=== PATIENT | female | born 1960 | race African-American/Black ===

== ENCOUNTER 2017-12-18 19:41 | Emergency (ER) | payer OTHER ==
[~2017-12-18] VITALS: Ht 167.6 cm; Wt 100.0 kg
[2017-12-18] MEDS ORDERED: KETOROLAC 30 MG/1 ML ONE (20:24)
[2017-12-18] MEDS ORDERED: ONDANSETRON ODT 4 MG ONE (20:24)
[2017-12-18] MEDS ORDERED: DIAZEPAM 5 MG TABLET ONE (20:25)
[2017-12-18] MEDS ORDERED: MORPHINE SULFATE 4 MG/ML, 1ML ONE (20:25)
[2017-12-18] MEDS ORDERED: KETOROLAC 30 MG/1 ML IV ONE (20:30)
[2017-12-18] MEDS ORDERED: DIAZEPAM 5 MG TABLET PO ONE (20:30)
[2017-12-18] MEDS ORDERED: ONDANSETRON 2MG/ML, 2ML IVPush ONE (20:30)
[2017-12-18] MEDS ORDERED: MORPHINE SULFATE 4 MG/ML, 1ML IVPush PRN (20:30)
[2017-12-18] MEDS ORDERED: DIPHENHYDRAMINE 50 MG/ML, 1ML ONE (20:45)
[2017-12-18] MEDS ORDERED: DIPHENHYDRAMINE 50 MG/ML, 1ML IVPush ONE (21:00)
[2017-12-18] MEDS ORDERED: HYDROmorphone 1 MG/ML, 1ML IVPush ONE (22:00)
[2017-12-18] MEDS ORDERED: HYDROmorphone 2 MG/ML, 1ML ONE (22:31)
[2017-12-18 23:35] VITALS: BP 167/80
== END 2017-12-18 23:52 | disposition home or self-care (01) ==
LOC: ED 23:39
DX: S39.012A Strain of muscle, fascia and tendon of lower back, initial encounter (principal); F17.210 Nicotine dependence, cigarettes, uncomplicated; X58.XXXA Exposure to other specified factors, initial encounter; Y93.89 Activity, other specified; Y92.89 Other specified places as the place of occurrence of the external cause; Y99.8 Other external cause status
CPT/HCPCS: 96374; 96375; 99284; J1170; J1885; J2405

== ENCOUNTER 2018-02-12 01:37 | Emergency (ER) | payer OTHER ==
[~2018-02-12] VITALS: Ht 170.2 cm; Wt 99.8 kg
[2018-02-12] MEDS ORDERED: TACR1CAP4 PO ×2 (01:44)
[2018-02-12] MEDS ORDERED: SODIUM CHLORIDE 0.9% 1,000ML IVBOLUS ONE (02:00)
[2018-02-12] MEDS ORDERED: SODIUM CHLORIDE FLUSH 10ML SYR IVF ONE (02:00)
[2018-02-12] MEDS ORDERED: ONDANSETRON ODT 4 MG PO ONE (02:00)
[2018-02-12] MEDS ORDERED: ONDANSETRON ODT 4 MG ONE (02:22)
[2018-02-12 02:28] LABS: BASOPHILS # (AUTO) 0.03 x10^3/uL (0-0.1); BASOPHILS % (AUTO) 0 % (0-1); EOSINOPHILS # (AUTO) 0.03 x10^3/uL (0-0.4); EOSINOPHILS % (AUTO) 0 % (1-7); LYMPHOCYTES # (AUTO) 0.91 x10^3/uL (1-3.4); LYMPHOCYTES % (AUTO) 12 % (22-44); MD NO; MEAN CORPUSCULAR HEMOGLOBIN 30.5 pg (27.0-34.8); MEAN CORPUSCULAR HGB CONC 34.2 g/dL (32.4-35.8); MEAN CORPUSCULAR VOLUME 88.9 fL (80-100); MEAN PLATELET VOLUME 9.3 fL (7.4-10.4); MONOCYTES # (AUTO) 0.66 x10^3/uL (0.2-0.8); MONOCYTES % (AUTO) 9 % (2-9); NEUTROPHILS # (AUTO) 6.13 x10^3/uL (1.8-6.8); NEUTROPHILS % (AUTO) 79 % (42-75); PLATELET COUNT 237 x10^3/uL (130-400); RED BLOOD COUNT 4.82 x10^6/uL (3.82-5.3); RED CELL DISTRIBUTION WIDTH 13.6 % (9.6-15.2)
[2018-02-12 02:36] LABS: ALANINE AMINOTRANSFERASE 31 U/L (12-78); ALBUMIN 3.7 g/dL (3.4-5.0); ANION GAP 9 mmol/L (5-15); CALCIUM 8.5 mg/dL (8.5-10.1); CHLORIDE 106 mmol/L (98-107); CREATININE 1.04 mg/dL (0.55-1.02)
[2018-02-12 02:39] LABS: ALKALINE PHOSPHATASE 97 U/L (45-117); BILIRUBIN,TOTAL 0.3 mg/dL (0.2-1.0); TOTAL PROTEIN 7.9 g/dL (6.4-8.2)
[2018-02-12 02:41] LABS: TROPONIN I < 0.015 ng/mL (0.000-0.045)
[2018-02-12 03:13] LABS: RAPID INFLUENZA A POSITIVE (Negative); RAPID INFLUENZA B Negative (Negative)
[2018-02-12 03:22] VITALS: BP 176/96
== END 2018-02-12 03:39 ==
LOC: ED 01:57
DX: R11.2 Nausea with vomiting, unspecified (principal); R19.7 Diarrhea, unspecified; J09.X2 Influenza due to identified novel influenza A virus with other respiratory manifestations; R10.84 Generalized abdominal pain
CPT/HCPCS: 36415; 71045; 80053; 83690; 84484; 85025; 87400; 93005; 96360; 99284; J7030; Q0162

== ENCOUNTER → 2018-02-21 | Outpatient (CLI) | payer OTHER ==
[~2018-02-21] MED LIST: TACR1CAP4 PO
[2018-02-21 16:05] LABS: EOSINOPHILS % (AUTO) 2 % (1-7); LYMPHOCYTES % (AUTO) 24 % (22-44); MEAN CORPUSCULAR HEMOGLOBIN 30.8 pg (27.0-34.8); MEAN CORPUSCULAR HGB CONC 34.1 g/dL (32.4-35.8); MEAN CORPUSCULAR VOLUME 90.1 fL (80-100); MEAN PLATELET VOLUME 9.8 fL (7.4-10.4); MONOCYTES % (AUTO) 7 % (2-9); NEUTROPHILS % (AUTO) 66 % (42-75); PLATELET COUNT 310 x10^3/uL (130-400); RED CELL DISTRIBUTION WIDTH 13.6 % (9.6-15.2)
[2018-02-21 16:06] LABS: BASOPHILS # (AUTO) 0.04 x10^3/uL (0-0.1); BASOPHILS % (AUTO) 1 % (0-1); EOSINOPHILS # (AUTO) 0.19 x10^3/uL (0-0.4); MD NO; MONOCYTES # (AUTO) 0.63 x10^3/uL (0.2-0.8); NEUTROPHILS # (AUTO) 5.88 x10^3/uL (1.8-6.8)
[2018-02-21 16:08] LABS: ALANINE AMINOTRANSFERASE 33 U/L (12-78); ALBUMIN 3.5 g/dL (3.4-5.0); ANION GAP 9 mmol/L (5-15); CALCIUM 8.5 mg/dL (8.5-10.1); CHLORIDE 114 mmol/L (98-107); CREATININE 1.05 mg/dL (0.55-1.02); GAMMA GLUTAMYL TRANSPEPTIDASE 21 U/L (5-55)
[2018-02-21 16:09] LABS: BILIRUBIN, DIRECT < 0.1 mg/dL (0.1-0.2)
[2018-02-21 16:11] LABS: ALKALINE PHOSPHATASE 88 U/L (45-117); BILIRUBIN,TOTAL 0.3 mg/dL (0.2-1.0); TOTAL PROTEIN 7.2 g/dL (6.4-8.2)
== END | disposition home or self-care (01) ==
LOC: CFH 12:08
PROVIDERS: ATTEND Internal Medicine Gastroenterology
DX: Z51.81 Encounter for therapeutic drug level monitoring (principal); Z79.891 Long term (current) use of opiate analgesic; Z94.4 Liver transplant status; Z88.1 Allergy status to other antibiotic agents
CPT/HCPCS: 36415; 80053; 80197; 82248; 82977; 84100; 85025

== ENCOUNTER → 2020-03-12 | Outpatient (CLI) | payer BC ==
[~2020-03-12] MED LIST changes: +GADOTERATE 10 MMOL/20 ML SYR ONE; +OMNIPAQUE 350 MG/ML, 75ML BOTTLE ONE; -TACR1CAP4 PO; +TACR1CAP5 PO
== END | disposition home or self-care (01) ==
LOC: CFH 13:17
PROVIDERS: ATTEND Registered Nurse
DX: I67.1 Cerebral aneurysm, nonruptured (principal); J32.0 Chronic maxillary sinusitis; G50.0 Trigeminal neuralgia
CPT/HCPCS: 70487; 70553; A9575; Q9967